=== PATIENT | female | born 1975 | race Caucasian/White ===

== ENCOUNTER 2018-04-15 14:05 | Outpatient (CLI) | payer SELFPAY ==
[2018-04-16 16:33] VITALS: BP 118/72; PULSE 65; RESP 16; TEMP 97.9
--- NOTE | 2018-04-21 06:46 | P.MSEPDOC ---
Presenting Problems - Arrival Data Date of Arrival on Unit: 04/16/18 Time of Arrival on Unit: 14:05 Mode of Transport: Wheelchair - Complaint OB-Reason for Admission/Chief Complaint: Vaginal Bleeding Comment: pt states pos preg test in january. test done at clinic in [facility]. Medical History - Information : 5 Para: 4 Term: 4 : 0 Abortions: Spontaneous or Elective: 0 Number of Living Children: 4 Review of Systems - Review of Systems Constitutional: No problems Breast: No problems ENT: No problems Cardiovascular: No problems Respiratory: No problems Gastrointestinal: No problems Genitourinary: No problems Musculoskeletal: No problems Neurological: No problems Skin: No problems Vital Signs - Temperature Temperature: 97.9 F Temperature Source: Tympanic - Pulse Right Radial Pulse Rate: 65 Pulse Assessment Method: Automatic Cuff - Respirations Respiratory Rate: 16 Oxygen Delivery Method: Room Air - Blood Pressure Right Arm Blood Pressure: 118/72 Blood Pressure Mean: 87 Blood Pressure Source: Automatic Cuff Medical Screen Scoring (Pre) - Cervical Exam Dilation: Exam Deferred - Uterine Contractions Frequency: N/A Duration: N/A Intensity: N/A - Maternal Vital Signs Maternal Temperature: N/A Maternal Blood Pressure: N/A Signs of Preeclampsia: N/A Maternal Respirations: N/A - Pain Assessment Pain Location and Character: Back Pain Scale Used: Numeric (1 - 10) Pain Intensity: 4 Pain Description: Aching Pain Frequency: Intermittent Pain Behavior: Vocalization - Total Score Total Score (Pre): 0 - Level of Risk Level of Risk: Low (0-5) Physician Notification (Pre) - Physician Notified Physician Notified Date: 04/16/18 Physician Notified Time: 14:55 Physician/Practitioner Notifed:: dez Spoke With: dez - Notification Comment Comment: pt is not preg. neg preg test. told to do this mse per princess. arnav. Disposition - Disposition Discharge Date: 04/16/18 Discharge Time: 16:07 I agree with the RN Medical Screening Exam: Yes Physician's MSE Comment: Pt was not . She had a bhcg done in triage that was negative. Risk & Benefit of care provided described in d/c instruction: Yes Diagnosis: IRREGULAR MENSTRUATION, UNSPECIFIED
== END 2018-04-15 16:07 | disposition home or self-care (01) ==
LOC: FBPOP 14:05
PROVIDERS: ATTEND Obstetrics & Gynecology
DX: N92.6 Irregular menstruation, unspecified (principal)
CPT/HCPCS: 84702; 99213

== ENCOUNTER 2018-08-13 16:42 | Emergency (ER) | payer OTHER ==
[2018-08-13 16:59] VITALS: RESP 18
[2018-08-13] MEDS ORDERED: ONDANSETRON ODT 4 MG TAB PO STA (17:21)
--- NOTE | 2018-08-13 17:58 | ED ---
General Adult HPI - General Chief complaint: Nausea/Vomiting/Diarrhea Stated complaint: Vomiting Time Seen by Provider: 08/13/18 17:06 Source: patient, RN notes reviewed, old records reviewed Mode of arrival: ambulatory Limitations: no limitations - History of Present Illness Initial comments: Patient 43-year-old female presented to the emergency room today with a chief complaint of symptoms of nausea vomiting. She states at 5 AM after getting home from work she had an episode of vomiting. She states she was able to eat something go to bed. She states she woke up and had another episode of nausea and vomiting. Patient states that she then again ate something because she thought maybe her stomach was just emptied. She states she was able to keep it down which were thereafter began having episodes of nausea vomiting. Patient states that she would like to go back to work but is concerned because she is still feeling nauseated. She denies any abdominal pain or any other complaints. She denies any other symptoms currently. Patient denies any recent fever, chills, shortness of breath, chest pain, back pain, abdominal pain, numbness or tingling, dysuria or hematuria, constipation or diarrhea, headaches or visual changes, or any other complaints. - Related Data Previous Rx's Medication Instructions Recorded Ondansetron Odt [Zofran ODT] 4 mg PO Q8HR PRN #20 tab 08/13/18 Allergies Allergy/AdvReac Type Severity Reaction Status Date / Time No Known Allergies Allergy Verified 08/13/18 17:11 Review of Systems ROS Statement: Those systems with pertinent positive or pertinent negative responses have been documented in the HPI. ROS Other: All systems not noted in ROS Statement are negative. Past Medical History Past Medical History: No Reported History History of Any Multi-Drug Resistant Organisms: None Reported Past Surgical History: Cholecystectomy Past Psychological History: No Psychological Hx Reported Smoking Status: Current every day smoker Past Alcohol Use History: Rare Past Drug Use History: None Reported General Exam - General Exam Comments Initial Comments: General: The patient is awake and alert, in no distress, and does not appear acutely ill. Eye: Extra-ocular movements are intact. No nystagmus. There is normal conjunctiva bilaterally. No signs of icterus. Ears, nose, mouth and throat: There are moist mucous membranes and no oral lesions. Neck: The neck is supple, there is no tenderness or JVD. Cardiovascular: There is a regular rate and rhythm. No murmur, rub or gallop is appreciated. Respiratory: Lungs are clear to auscultation, respirations are non-labored, breath sounds are equal. No wheezes, stridor, rales, or rhonchi. Gastrointestinal: Soft, non-distended, non-tender abdomen without masses or organomegaly noted. There is no rebound or guarding present. No CVA tenderness. Musculoskeletal: Normal ROM, no tenderness. Sensation intact. Strength 5/5. Pulses equal bilaterally 2+. Neurological: A&O x 3. CN II-XII intact, There are no obvious motor or sensory deficits. Coordination appears grossly intact. Speech is normal. Skin: Skin is warm and dry and no rashes or lesions are noted. Psychiatric: Cooperative, appropriate mood & affect, normal judgment. Limitations: no limitations Course Vital Signs 08/13/18 16:55 Temperature 98.1 F Pulse Rate 60 Respiratory 18 Rate Blood Pressure 137/84 O2 Sat by Pulse 100 Oximetry Medical Decision Making - Medical Decision Making Options were discussed with patient about further workup for her symptoms of nausea with blood work and imaging. Patient has declined these. She states that she would like to try just the nausea medicine. Patient reexamined and shows no signs of distress. Abdomen soft nontender. She denies any other complaints other than feeling nauseous. Has had no vomiting here the emergency room. She was given Zofran ODT here in the emergency room and she states she is feeling much better. Again was discussed with patient about further evaluation with blood work and imaging and she has declined. Patient will be discharged home with prescription to continue. She is advised follow-up with family physician return here to the emergency room symptoms increase or worsen. Disposition Clinical Impression: Nausea & vomiting Disposition: HOME SELF-CARE Condition: Good Instructions: Acute Nausea and Vomiting (ED) Additional Instructions: Please use medication as discussed. Please follow-up with family doctor in the next 2 days of symptoms have not improved. Please return to emergency room if the symptoms increase or worsen or for any other concerns. Prescriptions: Ondansetron Odt [Zofran ODT] 4 mg PO Q8HR PRN #20 tab PRN Reason: Nausea Is patient prescribed a controlled substance at d/c from ED?: No Referrals: None,Stated [Primary Care Provider] - 1-2 days Time of Disposition: 18:32
[2018-08-13 18:40] VITALS: BP 123/80; PULSE 80; TEMP 97.9
== END 2018-08-13 18:35 | disposition home or self-care (01) ==
LOC: EC 16:42
DX: R11.2 Nausea with vomiting, unspecified (principal); F17.200 Nicotine dependence, unspecified, uncomplicated; Z90.49 Acquired absence of other specified parts of digestive tract
CPT/HCPCS: 99284

== ENCOUNTER 2018-08-16 12:26 | Emergency (ER) | payer OTHER ==
[2018-08-16 12:53] VITALS: RESP 18
[2018-08-16] MEDS ORDERED: SODIUM CHLORIDE 0.9% 1,000 ML IV STA ×2 (14:24)
[2018-08-16 14:42] LABS: Basophils % (A) 1 %; Eosinophils # (A) 0.1 k/uL (0-0.7); Eosinophils % (A) 1 %; HCT 42.9 % (34.0-46.0); HGB 13.9 gm/dL (11.4-16.0); Lymphocytes # (A) 2.2 k/uL (1.0-4.8); Lymphocytes % (A) 26 %; MCH 31.3 pg (25.0-35.0); MCHC 32.5 g/dL (31.0-37.0); MCV 96.3 fL (80.0-100.0); Monocytes # (A) 0.4 k/uL (0-1.0); Monocytes % (A) 5 %; Neutrophils # (A) 5.6 k/uL (1.3-7.7); Neutrophils % (A) 66 %; Platelet Count 236 k/uL (150-450); RBC 4.45 m/uL (3.80-5.40); RDW 12.8 % (11.5-15.5); WBC 8.5 k/uL (3.8-10.6)
[2018-08-16 14:52] LABS: ALT 68 U/L (9-52); AST 94 U/L (14-36); Albumin 3.5 g/dL (3.5-5.0); Alkaline Phosphatase 54 U/L (38-126); Amylase 48 U/L (30-110); Anion Gap 4 mmol/L; Blood Urea Nitrogen 10 mg/dL (7-17); Calcium 8.9 mg/dL (8.4-10.2); Carbon Dioxide 27 mmol/L (22-30); Chloride 111 mmol/L (98-107); Glucose 97 mg/dL (74-99); Lipase 66 U/L (23-300); Potassium 4.5 mmol/L (3.5-5.1); Sodium 142 mmol/L (137-145); Total Bilirubin 0.4 mg/dL (0.2-1.3); Total Protein 6.7 g/dL (6.3-8.2)
[2018-08-16] MEDS ORDERED: ONDANSETRON 4 MG/2 ML VIAL IVP STA (15:01)
[2018-08-16] MEDS ORDERED: PANTOPRAZOLE 40 MG/10 ML VIAL IVP STA (15:01)
--- NOTE | 2018-08-16 15:30 | ED ---
Nausea/Vomiting/Diarrhea HPI - General Chief complaint: Nausea/Vomiting/Diarrhea Stated complaint: vomiting Time Seen by Provider: 08/16/18 14:21 Source: patient, RN notes reviewed, old records reviewed Mode of arrival: ambulatory Limitations: no limitations - History of Present Illness Initial comments: Patient is a 43-year-old female presents emergency room CO2 complaint of nausea and vomiting episodes of epigastric abdominal pain radiating towards her back for the past week. Patient was seen in emergency department 2 days ago for similar complaints. No lab work was obtained at that time. Patient requested a work note. Patient felt better at that time after GI cocktail. Patient reports that she has had episodes of diarrhea. She denies any recent fever or chills. She denies any chest pain or shortness of breath. Patient reports that she does drink alcohol. - Related Data Previous Rx's Medication Instructions Recorded Ondansetron Odt [Zofran ODT] 4 mg PO Q8HR PRN #20 tab 08/13/18 Omeprazole [PriLOSEC] 20 mg PO AC-BID #20 cap 08/16/18 Ondansetron Odt [Zofran Odt] 4 mg PO Q8HR PRN #12 tab 08/16/18 Sucralfate [Carafate] 1 gm PO ACHS #20 ml 08/16/18 Allergies Allergy/AdvReac Type Severity Reaction Status Date / Time No Known Allergies Allergy Verified 08/16/18 14:35 Review of Systems ROS Statement: Those systems with pertinent positive or pertinent negative responses have been documented in the HPI. ROS Other: All systems not noted in ROS Statement are negative. Past Medical History Past Medical History: No Reported History History of Any Multi-Drug Resistant Organisms: None Reported Past Surgical History: Cholecystectomy Past Psychological History: No Psychological Hx Reported Smoking Status: Current every day smoker Past Alcohol Use History: Rare Past Drug Use History: None Reported General Exam - General Exam Comments Initial Comments: 43-year-old female. Alert and oriented. Patient appears in no significant distress. General: Well appearing, well nourished, in no distress. Oriented x 3, normal mood and affect . Ambulating without difficulty. Skin: Good turgor, no rash, unusual bruising or prominent lesions Hair: Normal texture and distribution. HEENT: Head: Normocephalic, atraumatic, no visible or palpable masses, depressions, or scaring. Eyes: Visual acuity intact, conjunctiva clear, sclera non-icteric, EOM intact, PERRL. Pharynx: Mucosa non-inflamed, no tonsillar hypertrophy or exudate Neck: Supple, without lesions, bruits, or adenopathy, thyroid non-enlarged and non-tender Heart: No cardiomegaly or thrills; regular rate and rhythm, no murmur or gallop Lungs: Clear to auscultation and percussion Abdomen: Bowel sounds normal, minimal tenderness in the epigastric region. Back: Spine normal without deformity or tenderness, no CVA tenderness Extremities: No amputations or deformities, cyanosis, edema or varicosities, peripheral pulses intact Musculoskeletal: Normal gait and station. No misalignment, asymmetry, crepitation, defects, tenderness, masses, effusions, decreased range of motion, instability, atrophy or abnormal strength or tone in the head, neck, spine, ribs , pelvis or extremities. Neurologic: CN 2-12 normal. Sensation to pain, touch, and proprioception normal. DTRs normal in upper and lower extremities. No pathologic reflexes. Psychiatric: Oriented X3, intact recent and remote memory, judgment and insight , normal mood and affect. Limitations: no limitations Course Vital Signs 08/16/18 08/16/18 08/16/18 12:52 15:00 16:50 Temperature 98.2 F 98.0 F Pulse Rate 56 L 45 L 55 L Respiratory 18 18 18 Rate Blood Pressure 133/84 144/86 155/87 O2 Sat by Pulse 98 95 97 Oximetry Medical Decision Making - Medical Decision Making 43-year-old female presents for murmurs today when she went epigastric abdominal pain radiating towards her back. She's had symptoms for the past week. She does have a diet where she drinks a lot of coffee as well as consumes alcohol. Concern for gastritis or gastric ulcer. Patient has a minimal epigastric tenderness. Patient at this time has stable vital signs. Lab work was reviewed. Platelets at comes within normal limits. She is mildly elevated liver enzymes. She said history of cholecystectomy. I discussed this most likely related to diet and alcohol consumption. Discussed that she is have her liver enzymes rechecked by PCP. I will run a hepatitis panel. Patient has been advised to have close follow-up with primary care physician. We'll start the Patient on antacid medication and nausea medication. - Lab Data Result diagrams: 08/16/18 14:30 08/16/18 14:30 Lab Results 08/16/18 08/16/18 08/16/18 Range/Units 14:30 14:30 14:30 WBC 8.5 (3.8-10.6) k/uL RBC 4.45 (3.80-5.40) m/uL Hgb 13.9 (11.4-16.0) gm/dL Hct 42.9 (34.0-46.0) % MCV 96.3 (80.0-100.0) fL MCH 31.3 (25.0-35.0) pg MCHC 32.5 (31.0-37.0) g/dL RDW 12.8 (11.5-15.5) % Plt Count 236 (150-450) k/uL Neutrophils % 66 % Lymphocytes % 26 % Monocytes % 5 % Eosinophils % 1 % Basophils % 1 % Neutrophils # 5.6 (1.3-7.7) k/uL Lymphocytes # 2.2 (1.0-4.8) k/uL Monocytes # 0.4 (0-1.0) k/uL Eosinophils # 0.1 (0-0.7) k/uL Basophils # 0.0 (0-0.2) k/uL Sodium 142 (137-145) mmol/L Potassium 4.5 (3.5-5.1) mmol/L Chloride 111 H (98-107) mmol/L Carbon Dioxide 27 (22-30) mmol/L Anion Gap 4 mmol/L BUN 10 (7-17) mg/dL Creatinine 0.68 (0.52-1.04) mg/dL Est GFR (CKD-EPI)AfAm >90 (>60 ml/min/1.73 sqM) Est GFR (CKD-EPI)NonAf >90 (>60 ml/min/1.73 sqM) Glucose 97 (74-99) mg/dL Calcium 8.9 (8.4-10.2) mg/dL Total Bilirubin 0.4 (0.2-1.3) mg/dL AST 94 H (14-36) U/L ALT 68 H (9-52) U/L Alkaline Phosphatase 54 (38-126) U/L Total Protein 6.7 (6.3-8.2) g/dL Albumin 3.5 (3.5-5.0) g/dL Amylase 48 (30-110) U/L Lipase 66 (23-300) U/L Urine Color Urine Appearance (Clear) Urine pH (5.0-8.0) Ur Specific [place] (1.001-1.035) Urine Protein (Negative) Urine Glucose (UA) (Negative) Urine Ketones (Negative) Urine Blood (Negative) Urine Nitrite (Negative) Urine Bilirubin (Negative) Urine Urobilinogen (<2.0) mg/dL Ur Leukocyte Esterase (Negative) Urine RBC (0-5) /hpf Urine WBC (0-5) /hpf Ur Squamous Epith Cells (0-4) /hpf Amorphous Sediment (None) /hpf Urine Bacteria (None) /hpf Hyaline Casts (0-2) /lpf Urine Mucus (None) /hpf Hepatitis A IgM Ab Hep Bs Antigen Non-Reactive (Non-Reactive) Hep B Core IgM Ab Non-Reactive (Non-Reactive) Hep C IgG Ab Reactive H (Non-Reactive) 08/16/18 08/16/18 Range/Units 16:15 16:18 WBC (3.8-10.6) k/uL RBC (3.80-5.40) m/uL Hgb (11.4-16.0) gm/dL Hct (34.0-46.0) % MCV (80.0-100.0) fL MCH (25.0-35.0) pg MCHC (31.0-37.0) g/dL RDW (11.5-15.5) % Plt Count (150-450) k/uL Neutrophils % % Lymphocytes % % Monocytes % % Eosinophils % % Basophils % % Neutrophils # (1.3-7.7) k/uL Lymphocytes # (1.0-4.8) k/uL Monocytes # (0-1.0) k/uL Eosinophils # (0-0.7) k/uL Basophils # (0-0.2) k/uL Sodium (137-145) mmol/L Potassium (3.5-5.1) mmol/L Chloride (98-107) mmol/L Carbon Dioxide (22-30) mmol/L Anion Gap mmol/L BUN (7-17) mg/dL Creatinine (0.52-1.04) mg/dL Est GFR (CKD-EPI)AfAm (>60 ml/min/1.73 sqM) Est GFR (CKD-EPI)NonAf (>60 ml/min/1.73 sqM) Glucose (74-99) mg/dL Calcium (8.4-10.2) mg/dL Total Bilirubin (0.2-1.3) mg/dL AST (14-36) U/L ALT (9-52) U/L Alkaline Phosphatase (38-126) U/L Total Protein (6.3-8.2) g/dL Albumin (3.5-5.0) g/dL Amylase (30-110) U/L Lipase (23-300) U/L Urine Color Yellow Urine Appearance Cloudy H (Clear) Urine pH 6.0 (5.0-8.0) Ur Specific [place] 1.025 (1.001-1.035) Urine Protein 1+ H (Negative) Urine Glucose (UA) Negative (Negative) Urine Ketones Negative (Negative) Urine Blood Negative (Negative) Urine Nitrite Negative (Negative) Urine Bilirubin Negative (Negative) Urine Urobilinogen 2.0 (<2.0) mg/dL Ur Leukocyte Esterase Negative (Negative) Urine RBC 1 (0-5) /hpf Urine WBC 10 H (0-5) /hpf Ur Squamous Epith Cells 17 H (0-4) /hpf Amorphous Sediment Rare H (None) /hpf Urine Bacteria Rare H (None) /hpf Hyaline Casts 1 (0-2) /lpf Urine Mucus Many H (None) /hpf Hepatitis A IgM Ab NEGATIVE Hep Bs Antigen (Non-Reactive) Hep B Core IgM Ab (Non-Reactive) Hep C IgG Ab (Non-Reactive) Disposition Clinical Impression: Nausea & vomiting, Gastritis, Elevated liver enzymes Disposition: HOME SELF-CARE Instructions: Gastritis (ED), Diet for Stomach Ulcers and Gastritis (ED), Acute Nausea and Vomiting (ED) Additional Instructions: Patient denies to avoid alcohol, and diminish coffee intake. Take the medications as prescribed. Avoid acidic foods. Prescriptions: Omeprazole [PriLOSEC] 20 mg PO AC-BID #20 cap Ondansetron Odt [Zofran Odt] 4 mg PO Q8HR PRN #12 tab PRN Reason: Nausea Sucralfate [Carafate] 1 gm PO ACHS #20 ml Is patient prescribed a controlled substance at d/c from ED?: No Referrals: None,Stated [Primary Care Provider] - 1-2 days Time of Disposition: 16:45
[2018-08-16 16:25] LABS: Amorphous Sediment,Urine Rare /hpf; Appearance,Urine Cloudy (Clear); Bacteria,Urine Rare /hpf; Bilirubin,Urine Negative (Negative); Blood,Urine Negative (Negative); Color,Urine Yellow; Glucose,Urine (UA) Negative (Negative); Hyaline Casts,Urine 1 /lpf (0-2); Ketones,Urine Negative (Negative); Leukocyte Esterase,Urine Negative (Negative); Mucus,Urine Many /hpf; Nitrite,Urine Negative (Negative); Protein,Urine 1+ (Negative); RBC,Urine 1 /hpf (0-5); Specific Gravity,Urine 1.025 (1.001-1.035); Squamous Epithelial Cell,Urine 17 /hpf (0-4); WBC,Urine 10 /hpf (0-5)
[2018-08-16 16:51] VITALS: BP 155/87; PULSE 55; TEMP 98
[2018-08-16 17:02] LABS: Hepatitis A Antibody IgM NEGATIVE
[2018-08-17 04:40] LABS: Hepatitis B Core IgM Non-Reactive (Non-Reactive)
== END 2018-08-16 16:57 | disposition home or self-care (01) ==
LOC: EC 12:26
DX: K29.70 Gastritis, unspecified, without bleeding (principal); R74.8 Abnormal levels of other serum enzymes; R19.7 Diarrhea, unspecified; F17.200 Nicotine dependence, unspecified, uncomplicated; Z90.49 Acquired absence of other specified parts of digestive tract
CPT/HCPCS: 99284; 96374; 96375; 96361 ×2; 36415; 80053; 80074; 82150; 83690; 85025; 81001; J2405; C9113